=== PATIENT | male | born 1950 | race Two or more races ===

== ENCOUNTER 2020-07-29 14:02 | Emergency (ER) | payer OTHER ==
[2020-07-29 14:27] VITALS: BP 136/55; PULSE 71; TEMP 98.2; BMI 27.6
--- NOTE | 2020-07-29 14:27 | PDOC ---
History of Present Illness - General Chief Complaint: Edema Stated Complaint: swollen legs Time Seen by Provider: 07/29/20 14:26 - History of Present Illness Initial Comments: 07/29/20 16:21 Chief complaint: Pain medial left knee, bilateral calf edema HPI: Patient awoke this morning, and when he began walking noted pain in the medial left knee. It was not severe enough to impede his ambulation. He also complains of gradually worsening edema of both calves. He is uncertain how long this has been present. Review of systems: Denies fever/chills, headache, URI symptoms, sore throat, cough, chest pain, shortness of breath, abdominal pain, nausea, vomiting, diarrhea, urinary tract symptoms, visual or focal neurologic symptoms, unsteadiness of gait. Denies polyuria, polydipsia, weight loss or weight gain. Admits chronic back pain, from the coccyx to the neck. Under the care of her primary physician who monitors his sugar and performs blood work every 2 months. Most recent blood test was several weeks ago. Past medical history: High blood pressure, elevated cholesterol, [id number] diabetes. Chronic back and neck pain. Social history: Denies alcohol tobacco or nonprescription drugs. Does not work. Does not stand and walk for prolonged periods of time. Stable home and family Family history: Reviewed and noncontributory including early coronary artery disease, metabolic disease including diabetes, cancer Physical exam: Alert and oriented well-developed well-nourished no acute distress cooperative. Gait does not appear to be impaired despite right knee pain Afebrile, vital signs normal Head atraumatic. PERRLA, fundi benign, ENT clear Neck supple without bruit mass or nodes No point tenderness or deformity, no inflammatory changes of the cervical, thoracic, or lumbosacral spine. Chest clear, full breath sounds bilaterally, no chest wall or rib cage tenderness or deformity CV S1-S2 distant without murmur rub or gallop pulses full and symmetric no JVD no bruits regular 90/min Abdomen soft nontender without mass organomegaly. Bowel sounds normal. No CVAT Neurological C2 to 12 intact. Strength full and symmetric. No focal sensorimotor deficits. Cerebellar intact. Gait stable and unimpaired Extremities no cyanosis or clubbing. 1+ pedal edema extending to just below the knees bilaterally. No erythema, warmth, or induration. Left knee: No deformity, swelling, or effusion. No erythema or warmth. Full range of motion in flexion and extension without pain. Mild tenderness over the MCL with stress tenderness as well, but without laxity. LCL exam is normal. Ji is negative. Distal pulses full. Edema as described Assessment: MCL sprain, chronic lower leg edema, probably due to mild CHF and/or renal disease. Plan: Monico ice and rest of the knee. Elevation of the legs to control edema. Follow-up primary physician and waste disposal leakage tester for further work-up. Fully ambulatory without significant pain or other distress at discharge Past History - Medical History Allergies/Adverse Reactions: Allergies Allergy/AdvReac Type Severity Reaction Status Date / Time No Known Allergies Allergy Verified 01/24/20 13:08 Home Medications: Ambulatory Orders Amlodipine Besylate [Norvasc -] 5 mg PO DAILY 01/24/20 Aspirin [Aspirin EC] 81 mg PO DAILY 01/24/20 Atorvastatin Ca [Lipitor] 40 mg PO HS 01/24/20 Carvedilol [Coreg -] 3.125 mg PO BID 01/24/20 Hydrochlorothiazide 25 mg PO DAILY 01/24/20 Isoniazid 300 mg PO ASDIR 01/24/20 Losartan Potassium 25 mg PO DAILY 01/24/20 Polyethylene Glycol 3350 [Clearlax] 17 gm PO DAILY 01/24/20 Pyridoxine HCl [Vitamin B-6] 100 mg PO ASDIR 01/24/20 Sitagliptin Phosphate [Januvia] 100 mg PO DAILY 01/24/20 Anemia: Yes Asthma: No Cancer: No Cardiac Disorders: No CVA: No COPD: No CHF: No Dementia: No Diabetes: Yes GI Disorders: No HTN: Yes Hypercholesterolemia: Yes Liver Disease: Yes (LIVER ABSCESS) - Surgical History Abdominal Surgery: Yes (abscess to liver) Appendectomy: No Cardiac Surgery: No Cholecystectomy: No Lung Surgery: No Neurologic Surgery: No - Immunization History Immunization Up to Date: Yes - Psycho-Social/Smoking History Smoking Status: No Smoking History: Never smoked Have you smoked in the past 12 months: No Number of Cigarettes Smoked Daily: 0 - Substance Abuse Hx (Audit-C & DAST Scrn) How often the patient has a drink containing alcohol: Monthly or less Score: In Men: 4 or > Positive; In Women: 3 or > Positive: 1 Screen Result (Pos requires Nsg. Audit-10AR): Negative In the last yr the pt used illegal drug/Rx for NonMed reason: No Score: Yes response is considered Positive: 0 Screen Result (Positive result requires Nsg. DAST-10): Negative *Physical Exam - Vital Signs Last Vital Signs Temp Pulse Resp BP Pulse Ox 98.2 F 71 18 136/55 L 99 07/29/20 14:04 07/29/20 14:04 07/29/20 14:04 07/29/20 14:04 07/29/20 14:04 Discharge - Discharge Information Problems reviewed: Yes Clinical Impression/Diagnosis: Knee strain Qualifiers: Encounter type: initial encounter Laterality: left Qualified Code(s): S86.912A - Strain of unspecified muscle(s) and tendon(s) at lower leg level, left leg, initial encounter Condition: Stable Disposition: HOME - Admission No - Follow up/Referral Referrals: Edwin Vargas MD [Staff Physician] - - Patient Discharge Instructions Patient Printed Discharge Instructions: DI for Knee Sprain, DI for Dependent Edema Additional Instructions: Monico wrap and ice to knee. Elevate legs for edema. Recommended to see primary physician, obtain referral to waste disposal leakage tester and kidney specialist to find the cause of leg edema. - Post Discharge Activity
== END 2020-07-29 17:00 | disposition home or self-care (01) ==
LOC: FER 14:02
DX: S86.912A Strain of unspecified muscle(s) and tendon(s) at lower leg level, left leg, initial encounter (principal)
CPT/HCPCS: 73560-TC-LT-FY; 99284-25